=== PATIENT | female | born 1985 | race Caucasian/White ===

== ENCOUNTER 2019-06-05 12:59 | Emergency (ER) | payer BC ==
[~2019-06-05] VITALS: Ht 172.7 cm; Wt 122.7 kg
[2019-06-05 13:13] VITALS: BP 126/86
[2019-06-05] MEDS ORDERED: ketorolac trometh inj. 60 MG/2 ML VIAL IM ONE (14:45)
[2019-06-05] MEDS ORDERED: IBUP-1984 PO ×2 (15:46→15:51)
[2019-06-05] MEDS ORDERED: METH-360 PO (15:46)
== END 2019-06-05 16:07 | disposition home or self-care (01) ==
LOC: ER 12:59
DX: M54.5 Low back pain (principal); G89.29 Other chronic pain; Z79.899 Other long term (current) drug therapy
CPT/HCPCS: 96372; 99284; J1885